=== PATIENT | male | born 1955 | race Caucasian/White ===

== ENCOUNTER 2016-07-01 16:40 | Inpatient (IN) | payer MEDICARE, MEDICAID ==
[2016-07-01] MEDS ORDERED: Furosemide 40 MG/4 ML VIAL IVPUSH ONE (17:07)
[2016-07-01 18:08] LABS: CHLORIDE,CL 100 mmol/L (98-107); SODIUM,NA 141 mmol/L (136-145)
[2016-07-01] MEDS ORDERED: oxyCODONE ER 10 MG TAB.ER PO PRN (19:37)
[2016-07-01] MEDS ORDERED: PREGABALIN 50 MG PO PRN (19:37)
[2016-07-01] MEDS ORDERED: Potassium Chloride 20 MEQ Tab.ER PO SCH (20:00)
[2016-07-01] MEDS ORDERED: Furosemide 80 MG Tab PO SCH (20:00)
--- NOTE | 2016-07-01 21:16 | ER ---
Date of Service: 07/01/2016 SUBJECTIVE: Rey presents to the emergency room with complaints of "filling up with fluid." The patient states that he has a history of lymphedema and history of chronic fluid overload. He does weigh between 400 and 600 pounds. The patient is scheduled to undergo a bariatric procedure in [place], [place], next Tuesday. He recently was discharged from [facility] in [place] and the patient was going to come to [facility] as a swing bed patient. The patient refused to be admitted to a swing bed and subsequently went home and now presents back to the emergency room complaining of difficulties managing or taking care of his activities for daily living and also complaints of fluid overload. The patient does have a Urbina catheter in place as he has a great amount of difficulty using the bathroom due to his size. He was seen at [facility] on 06/17/2016 with volume overload and at that time his Lasix was increased. He was not found to be in any heart failure. PAST MEDICAL HISTORY: 1. Obesity. 2. Coronary artery disease. 3. History of heart failure. 4. Dyslipidemia. 5. Hypertension. 6. Sleep apnea. Does not use CPAP, is on home O2. 7. Abdominal hernia. 8. Very large abdominal panniculus. 9. Chronic indwelling Urbina catheter due to urinary incontinence. 10.Osteoarthritis. 11.Lymphedema. 12.Hypothyroidism. 13.Cellulitis. 14.Stasis dermatitis. 15.Recurrent cellulitis of lower extremities. 16.History of MRSA. 17.Medical noncompliance. MEDICATIONS: 1. OxyContin 10 mg p.o. b.i.d. 2. Oxycodone 5 mg p.o. t.i.d. 3. Topamax 25 mg b.i.d. 4. Spironolactone 25 mg p.o. daily. 5. Simvastatin 20 mg daily. 6. Zoloft 50 mg daily. 7. Pseudoephedrine 30 mg p.o. t.i.d. p.r.n. 8. Lyrica 25 mg p.o. t.i.d. 9. Potassium chloride 40 mEq p.o. b.i.d. 10.Levothyroxine 25 mg p.o. at breakfast. 11.Furosemide 80 mg p.o. b.i.d. 12.Doxycycline 100 mg p.o. daily. 13.Cefuroxime 500 mg p.o. b.i.d. 14.Aspirin 325 mg p.o. daily. ALLERGIES: NKDA. REVIEW OF SYSTEMS: General: No fever or chills. HEENT: No sore throat, rhinorrhea, or congestion. Respiratory: He does complain of shortness of breath. Cardiac: Denies any substernal chest pain. GI: No nausea, vomiting, or diarrhea. No melena, hematochezia, or hematemesis. : Denies any dysuria. Musculoskeletal: Complains of chronic aches and pains. Neurologic: No fainting, blackouts, lightheadedness or palpitations. PHYSICAL EXAMINATION: General: This is a 60-year-old male patient, who is in no acute distress. Vital Signs: Please see nurse's notes. Skin: Warm, pale, and dry. HEENT. Head is normocephalic, atraumatic. Eyes, PERRLA. Extraocular movements are intact. Mouth, oral mucosa is moist. No erythema or exudate noted on hypopharynx. Neck: Supple without masses. There is no lymphadenopathy. Lungs: Clear to auscultation. Heart: Regular rate and rhythm. Abdomen: Obese. He does have a large ventral hernia. His panniculus is large with rough excoriated skin present on the inferior portion of his abdomen. He does have evidence of severe at candidiasis underlying the abdominal panniculus. Musculoskeletal: He does have evidence of stasis pigmentation and peripheral vascular disease to his lower extremities. His feet are wrapped in Mike wraps for his lymphedema at they are unable to get a AVIVA hose on him. LABORATORY DATA: WBCs 12.4, hemoglobin is 13.2, platelets are 294. Coags, PT is 10.1, INR is 0.9. Sodium is 141, potassium is 3.1, chloride is 100, bicarb is 33, BUN is 22, creatinine is 0.9. GFR is greater than 60. Glucose is 103, calcium is 8.6, corrected calcium is 9.32. Total bilirubin is 0.4, AST is 21, ALT is 43, alkaline phosphatase is 77, CK is 45, CK-MB is 0.8. Troponin is less than 0.017. C-reactive protein is 1.3. ProBNP is 201, total protein is 7.6, albumin is 3.1. DIAGNOSTIC DATA: Portable chest x-ray was obtained. No evidence of significant fluid overload. No evidence of any acute infiltrate. No significant cardiomegaly. I did have this over read by Radiology and he felt that there was no acute process present. A 12-lead EKG was obtained showing a sinus rhythm without any acute ST or T-wave abnormalities. EMERGENCY ROOM COURSE: 1. The patient did have a Urbina catheter again in place. The patient was given 40 mg of Lasix IV and he did diurese approximately 2000 mL of urine while here in the emergency room. He remained stable under my care here. ASSESSMENT: 1. Fluid overload. 2. Lymphedema. 3. Morbid obesity. 4. Hypokalemia. PLAN: The patient initially was scheduled again to come to our facility, but refused. I did contact the high school social studies teacher at home this evening and she stated that he should be able to come back in to our facility as a swing bed patient as it has been less than a month since his last acute admission. Subsequently, the patient was admitted on observation status and he will consulted tomorrow regarding his possible swing bed admission. All questions were answered. MWK: 07/01/2016 20:44:34 MODL: 07/01/2016 21:08:58 /[id number]
[2016-07-01] MEDS: Cefuroxime 250 MG Tab PO SCH (21:22)
[2016-07-01] MEDS: OXYCODONE 5 MG PO SCH (21:23)
[2016-07-01] MEDS: Furosemide 40 MG/4 ML VIAL IVPUSH SCH (21:23)
[2016-07-01] MEDS: Potassium Chloride 20 MEQ Tab.ER PO SCH (21:23)
[2016-07-01] MEDS: PREGABALIN 25 MG PO SCH (21:23)
[2016-07-01] MEDS: Topiramate 25 MG Tab PO SCH (21:24)
[2016-07-02] MEDS: methylPREDNISolone Sodium Succinate 125 MG/2 ML SDV ONE ×2 (00:30→23:30)
[2016-07-02] MEDS: Levothyroxine 25 MCG Tab PO SCH (06:13)
[2016-07-02] MEDS ORDERED: PREGABALIN 50 MG PO SCH (08:00)
[2016-07-02] MEDS ORDERED: ERGOCALCIFEROL 50000 UNIT PO SCH (09:00)
[2016-07-02] MEDS: Sodium Chloride 0.9% 10 ML Syringe FLUSH PRN (10:03)
[2016-07-02] MEDS: Furosemide 40 MG/4 ML VIAL IVPUSH SCH ×2 (10:03→20:12)
[2016-07-02 10:15] LABS: CHLORIDE,CL 101 mmol/L (98-107); SODIUM,NA 141 mmol/L (136-145)
--- NOTE | 2016-07-02 10:22 | PN ---
Progress Note for LACHO ALEXANDRA Date:07/02/2016 Room #: VM.217 SUBJECTIVE: Lacho was hospitalized last evening with fluid overload and hypokalemia. He was started on IV Lasix b.i.d. and has diuresed a total of 3200 mL out this morning in addition to that 1850 mL out yesterday evening. The patient states that he feels as though he has less fluid on board. He is not experiencing any significant shortness of breath. The patient had discussed signing out AMA as he had requested candy last night from [employer], and there was none available for him. Also exchanged some words with staff when he was unhappy with the way that his bed was positioned. PHYSICAL EXAMINATION: General: This is a 60-year-old male patient, in no acute distress. Vital Signs: Respiratory rate 22, blood pressure is 133/60, pulse rate 78, temperature is 36.5, O2 saturations 96% on 2 L. Skin: Warm, pink, and dry. HEENT: Mouth, oral mucosa is moist. Lungs: Clear to auscultation. Heart: Regular rate and rhythm. Abdomen: Soft and obese. He does have a large ventral hernia. Remainder of his physical examination is within normal limits. ASSESSMENT: 1. Volume overload. 2. Hypokalemia. PLAN: We will obtain his comprehensive metabolic panel and CBC today. We will closely monitor the patient. All questions were answered. MWK: 07/02/2016 09:28:02 MODL: 07/02/2016 10:13:12 /[id number]
[2016-07-02] MEDS: Potassium Chloride 20 MEQ Tab.ER PO SCH ×3 (10:44→20:05)
[2016-07-02] MEDS ORDERED: PREGABALIN 25 MG PO PRN (10:56)
[2016-07-02] MEDS ORDERED: OXYCODONE 10 MG PO SCH ×2 (11:00→11:15)
[2016-07-02] MEDS: Potassium Chloride 20 MEQ in Premix Bag 1 BAG IV SCH ×2 (11:01→13:27)
[2016-07-02] MEDS ORDERED: Pseudoephedrine 30 MG Tab PO PRN (11:06)
[2016-07-02] MEDS ORDERED: Sodium Chloride 0.9% 250 ML IV SCH (11:15)
[2016-07-02] MEDS: MAGNESIUM OXIDE 200 MG PO SCH (11:58)
[2016-07-02] MEDS: Spironolactone 25 MG Tab PO SCH (12:00)
[2016-07-02] MEDS: Simvastatin 20 MG Tab PO SCH (12:00)
[2016-07-02] MEDS: Sertraline 50 MG Tab PO SCH (12:01)
[2016-07-02] MEDS: Aspirin 325 MG Tab.EC PO SCH (12:02)
[2016-07-02] MEDS: Cefuroxime 250 MG Tab PO SCH ×2 (12:02→20:05)
[2016-07-02] MEDS: Topiramate 25 MG Tab PO SCH ×2 (12:03→20:09)
[2016-07-02] MEDS: OXYCODONE 5 MG PO SCH ×3 (12:03→15:55)
[2016-07-02] MEDS: PREGABALIN 25 MG PO SCH ×3 (12:04→15:55)
[2016-07-02] MEDS ORDERED: OXYCODONE 10 MG PO PRN (12:38)
[2016-07-02] MEDS: CYANOCOBALAMIN 5000 MCG SL SCH ×2 (13:17→20:10)
[2016-07-02 14:27] LABS: CHLORIDE,CL 100 mmol/L (98-107); SODIUM,NA 140 mmol/L (136-145)
[2016-07-02] MEDS ORDERED: Furosemide 80 MG Tab PO SCH (16:00)
--- NOTE | 2016-07-02 16:20 | PCM.SN ---
- Free Text/Narrative Note: Combine with dictated H and P as I was disconnected 1. Edema and anasarca due to morbid obesity continue IV lasix, check urine protein ratio 2. Morbid obesity, I do not feel he is a candidate for gastric bypass surgery next week 3. Essential hypertension continue home meds/diuretics 4. Hypokalemia improved continue oral potassium recheck in AM 5. Malnutrition with low albumin we will have nutrition see him he states he is on a low carb diet 6. Lymphedema we will keep his legs wrapped 7. Hx of MRSA, he continues on ceftin for unknown reasons but doesn't like the taste of ours so plans not to take it 8. Hypothyroidism, on replacement we will check TSH 9. Chronic pain on narcotics and lyrica, lyrica may be contributing to his swelling Code level 1 for DVT prophylaxis will order Lovenox 40 mg BID Patient upgraded to acute care due to IV lasix and need for potassium replacement and lab work We will also continue telemetry, his troponin was negative
[2016-07-02] MEDS: Enoxaparin 40 MG/0.4 ML Syringe SUBCUT SCH (20:06)
[2016-07-02] MEDS: OXYCODONE 10 MG PO SCH (20:08)
[2016-07-02] MEDS: PREGABALIN 50 MG PO SCH (20:11)
[2016-07-02] MEDS ORDERED: diphenhydrAMINE 25 MG Cap PO PRN (22:30)
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
[2016-07-02] MEDS ORDERED: diphenhydrAMINE 50 MG/ML SDV ONE (23:16)
[2016-07-02] MEDS ORDERED: EPINEPHrine 1:1000 1 MG/ML SDV ONE (23:19)
[2016-07-03] MEDS: OXYCODONE 10 MG PO SCH ×3 (00:37→23:33)
[2016-07-03] MEDS: PREGABALIN 50 MG PO SCH ×3 (00:39→23:33)
--- NOTE | 2016-07-03 01:03 | PN ---
Progress Note for LACHO ALEXANDRA Date: 07/03/2016 Room #: VM.218 SUBJECTIVE: Lacho is the patient on the floor. I was consulted as the patient was experiencing symptoms of an allergic reaction. The patient had not been started on any new medications but did have a chocolate shake tonight. He states that he thinks that possibly something in the shake caused him to have an allergic reaction because he began experiencing the symptoms shortly after consuming the shake. The patient states that shortly after consuming the shake, he began experiencing urticaria, sensation of burning in his mouth, and shortness of breath. Nursing staff consulted me and subsequently went to the floor to care for the patient. He is a patient of Dr. Francisca Maldonado. PHYSICAL EXAMINATION: Vital Signs: Blood pressure is 147/63, O2 saturation is 94% on oxygen at 2 L/minute, respiratory rate is 20, temperature is 36.8, pulse rate is 92. HEENT: Mouth, oral mucosa is moist. Lungs: Clear to auscultation. Heart: Regular rate and rhythm. Abdomen: Soft and nontender. It is obese. Skin: Warm, pink, and dry. He does have urticaria and swelling to the lips. His skin is extremely pruritic and he is itching vigorously at his skin. HOSPITAL COURSE: The patient was given epinephrine 0.5 mg IM, Benadryl 50 mg IV, and Solu-Medrol 125 mg IV. The patient reported rapid resolution of his symptoms and stated that he was feeling much better approximately 10 minutes after receiving the above medications. ASSESSMENTS: 1. Allergic reaction to unknown allergen. 2. Fluid overload. 3. Lymphedema. 4. Morbid obesity. PLAN: We will monitor the patient tonight. The patient is requesting that he be transferred to [facility] in [place] tomorrow. He has threatened to leave this facility AMA on numerous occasions since being admitted. Again, he does wish to remain at our facility tonight. All questions were answered. MWK: 07/03/2016 00:43:37 MODL: 07/03/2016 00:58:59 /[id number]
[2016-07-03] MEDS ORDERED: TERBINAFINE 250 MG PO SCH (08:00)
[2016-07-03] MEDS ORDERED: Metolazone 2.5 MG Tab PO SCH (08:00)
[2016-07-03 08:33] LABS: CHLORIDE,CL 100 mmol/L (98-107); SODIUM,NA 139 mmol/L (136-145)
[2016-07-03] MEDS: OXYCODONE 5 MG PO SCH ×3 (09:44→15:58)
[2016-07-03] MEDS: PREGABALIN 25 MG PO SCH ×3 (09:44→15:59)
[2016-07-03] MEDS: Potassium Chloride 20 MEQ Tab.ER PO SCH ×3 (09:45→11:34)
[2016-07-03] MEDS: Enoxaparin 40 MG/0.4 ML Syringe SUBCUT SCH ×2 (09:46→19:53)
[2016-07-03] MEDS: Furosemide 40 MG/4 ML VIAL IVPUSH SCH ×2 (09:47→19:50)
[2016-07-03] MEDS: Aspirin 325 MG Tab.EC PO SCH (09:47)
[2016-07-03] MEDS: Cefuroxime 250 MG Tab PO SCH ×2 (09:47→19:18)
[2016-07-03] MEDS: Spironolactone 25 MG Tab PO SCH (09:47)
[2016-07-03] MEDS: Sodium Chloride 0.9% 10 ML Syringe FLUSH PRN ×2 (09:48→19:57)
[2016-07-03] MEDS: MAGNESIUM OXIDE 200 MG PO SCH (09:49)
[2016-07-03] MEDS: Simvastatin 20 MG Tab PO SCH (09:49)
[2016-07-03] MEDS: Sertraline 50 MG Tab PO SCH (09:49)
[2016-07-03] MEDS: CYANOCOBALAMIN 5000 MCG SL SCH ×3 (09:49→19:18)
[2016-07-03] MEDS: Topiramate 25 MG Tab PO SCH ×2 (09:49→19:18)
[2016-07-03] MEDS: Doxycycline 100 MG Cap PO SCH (09:59)
[2016-07-03] MEDS: Levothyroxine 25 MCG Tab PO SCH (09:59)
--- NOTE | 2016-07-03 11:40 | PN ---
Progress Note for LACHO ALEXANDRA Date: 07/03/2016 Room #: VM.218 SUBJECTIVE: This is hospital day #3 for a 60-year-old, initially admitted to observation for generalized lymphedema and swelling. The patient tells me he is under emergent status for gastric bypass surgery which is to take place Tuesday. He is hoping to get some of the fluid off before he goes. We were unable to weigh him yesterday due to his weight, but we will keep trying. He is down 7.4 L since admission. Kidney function is looking excellent. He denies any shortness of breath today. Overall, I feel as leg swelling is better. He did have an episode last night of itching. Initially, I ordered oral Benadryl because it was itching and then it progressed to some lip swelling and trouble breathing. The ER PA was in house and checked on him and ordered 250 of Solu- Medrol and epinephrine and the patient did much better after that. He also did end up getting some IV Benadryl too. Otherwise, this morning; he has been asking for ice cream. He did get some. Blood sugar was over 200. Probably due to the Solu-Medrol. He has been ordering extra food from the kitchen. I discussed with him in detail about compliance with following a lower calorie diet due to his upcoming gastric bypass surgery. But he told me he has already met with them and he knows what he is supposed to be doing. OBJECTIVELY: Vital Signs: His temperature is 97.7, pulse 93, blood pressure 115/58, respiratory rate 20, and O2 of 90 on 3.5 L. He normally does use oxygen at home, every time he lays down. He is supposed to be on a CPAP, but he does not use it. General: He is in no acute distress. Heart: Regular rate and rhythm with distant tones. He has been on telemetry. He has had some sinus tachycardia and artifact, otherwise, no concerning rhythm. Abdomen: Distended. He has notable hernias, but there is no tenderness. Extremities: Lymphedema changes, but edema is improved down to 2+ in his feet and calves with no redness or warmth or open sores to suggest an infection. He did refuse his Topamax and Ceftin last night. LABORATORY DATA: Otherwise lab work today does show his white count 13.3, hemoglobin 14.7, and platelets 246. Sodium 139, potassium 4.3, chloride 100, bicarb 32, BUN 18, creatinine 1, and glucose 216 and calcium 9.1. ASSESSMENT: 1. Lymphedema, due to morbid obesity. Protein to creatinine ratio to be collected and sent out. 2. Anasarca. 3. Morbid obesity. 4. Hyperglycemia, due to steroids. He does have a history of pre diabetes. We will do Accu-Cheks q.i.d. today. 5. Allergic reaction possibly angioedema unknown cause. The patient is not on any SERENA inhibitors. We went through his medicines in detail the only new things were really the magnesium and Drisdol which he got in the morning. He did also get Lovenox in the evening, but he has had that 100s of times before per his report. 6. Known history of medical noncompliance. 7. Chronic hypoxia and on treated sleep apnea. PLAN: At this point, the patient will continue acute cares with IV Lasix. He will get another dose of Lovenox this morning. We will watch him closely if any signs of allergic reaction, we will treat that. We will continue with oral Aldactone as well. We will repeat all lab work in the morning. We will put him on a stricter diet with diabetic features as well as 2000 calorie limit. MKA: 07/03/2016 09:42:43 MODL: 07/03/2016 11:30:28 /[id number]
[2016-07-03] MEDS: Nystatin Crm 30 GM Tube TOP SCH (20:03)
[2016-07-04] MEDS: Levothyroxine 25 MCG Tab PO SCH (06:47)
[2016-07-04] MEDS: PREGABALIN 25 MG PO SCH ×3 (07:51→16:06)
[2016-07-04] MEDS: OXYCODONE 5 MG PO SCH ×3 (07:51→16:06)
[2016-07-04] MEDS: Doxycycline 100 MG Cap PO SCH (07:52)
[2016-07-04] MEDS: Sodium Chloride 0.9% 10 ML Syringe FLUSH PRN ×2 (07:53→20:47)
[2016-07-04] MEDS: Furosemide 40 MG/4 ML VIAL IVPUSH SCH ×2 (07:53→20:37)
[2016-07-04] MEDS: CYANOCOBALAMIN 5000 MCG SL SCH ×3 (07:55→19:30)
[2016-07-04] MEDS: Enoxaparin 40 MG/0.4 ML Syringe SUBCUT SCH ×2 (07:55→20:38)
[2016-07-04] MEDS: Aspirin 325 MG Tab.EC PO SCH (07:55)
[2016-07-04] MEDS: Spironolactone 25 MG Tab PO SCH (07:55)
[2016-07-04] MEDS: MAGNESIUM OXIDE 200 MG PO SCH (07:55)
[2016-07-04] MEDS: Cefuroxime 250 MG Tab PO SCH ×2 (07:55→19:30)
[2016-07-04] MEDS ORDERED: Potassium Chloride 20 MEQ Tab.ER PO SCH (08:00)
[2016-07-04 08:24] LABS: CHLORIDE,CL 102 mmol/L (98-107); SODIUM,NA 142 mmol/L (136-145)
[2016-07-04] MEDS: Sertraline 50 MG Tab PO SCH (08:39)
[2016-07-04] MEDS: Simvastatin 20 MG Tab PO SCH (08:39)
[2016-07-04] MEDS: Topiramate 25 MG Tab PO SCH ×2 (08:39→19:30)
--- NOTE | 2016-07-04 11:37 | PN ---
Progress Note for LACHO ALEXANDRA Date: 07/04/2016 Room #: VM.218 SUBJECTIVE: This is a 60-year-old admitted on the evening of 07/01 to observation and to acute status on 07/02 for generalized anasarca and lymphedema. The patient has had another 2 L out. He is down 9 L overall. He denies shortness of breath. He has not had any further allergic reactions. He has been using nystatin and pillow cases now between his skin folds. There was some minor redness, but no open sores. No warmth to suggest an infection. Otherwise, his white count did go up slightly from 13.3 to 13.6. He has been afebrile. He does refuse many of his medications. He is normally supposed to be on both Ceftin and doxycycline to prevent cellulitis and infections, but here, he has been using only the doxycycline. He had some hyperglycemia from steroids received the day before for an allergic reaction. Blood sugars are improved. OBJECTIVE: Vital Signs: His temperature is 96.7, pulse 64, blood pressure 117/56, respiratory rate 20, O2 of 100% on 3.5 L. General: He is in no acute distress. Heart: Regular rate and rhythm. S1 and S2 with distant tones. No murmur appreciated. Lungs: Sounds clear to auscultation bilaterally without crackles or wheezes. Abdomen: Obese and large with an obvious ventral hernia, nontender. Extremities: Lymphedema changes. Wrapping in place. Tenderness to palpation anteriorly over the left eze. No significant increase in swelling from yesterday, but still has 2+ edema in both feet. Mental Status: Alert and orientated x3. Skin: Some redness noted to the groin folds and below his pannus anteriorly, but no warmth to suggest infection. LABORATORY DATA: Lab work today does show him to have a white count of 13.6, hemoglobin 11.6, platelets 297. Sodium 142, potassium 3.4, chloride 102, bicarb 37, BUN 22, creatinine 0.9, glucose 126, and calcium 7.8. ASSESSMENT: 1. Lymphedema, likely due to morbid obesity with anasarca with normal renal function. Protein-creatinine ratio has been sent off. 2. Morbid obesity. 3. Hyperglycemia due to steroids, resolved. He does have a history of pre- diabetes, but routine Accu-Chek no longer indicated. 4. Allergic reaction. It is possible with something he ate. He had some kind of chocolate shake right before it occurred. He has had no further episodes. 5. History of medical noncompliance. 6. Chronic hypoxia with untreated sleep apnea. 7. DVT prophylaxis, on Lovenox b.i.d. PLAN: At this point, the patient is admitted under acute cares to continue on IV Lasix. We will watch renal function closely and repeat in the morning. We will increase his potassium dosing to 40 b.i.d.; his home dose was 20 t.i.d. Hopefully, he will be medically stable to have discharge tomorrow with plans to go to [place], [place] for gastric bypass and hernia repair surgery on the next date. He understands that he is a very high risk surgical candidate. It was his previous primary care provider, Dr. Kramer and the surgeon who have been working on this plan. MKA: 07/04/2016 11:14:20 MODL: 07/04/2016 11:29:50 /[id number]
[2016-07-04] MEDS: Nystatin Crm 30 GM Tube TOP SCH ×2 (12:06→20:40)
[2016-07-04] MEDS: Potassium Chloride 20 MEQ Tab.ER PO SCH (20:34)
[2016-07-04] MEDS: OXYCODONE 10 MG PO SCH (20:35)
[2016-07-04] MEDS: PREGABALIN 50 MG PO SCH (20:36)
[2016-07-05] MEDS: OXYCODONE 10 MG PO SCH (00:15)
[2016-07-05] MEDS: PREGABALIN 50 MG PO SCH (00:15)
[2016-07-05 06:17] VITALS: BP 126/88
[2016-07-05] MEDS: Levothyroxine 25 MCG Tab PO SCH (06:18)
[2016-07-05 07:40] LABS: CHLORIDE,CL 104 mmol/L (98-107); SODIUM,NA 143 mmol/L (136-145)
[2016-07-05] MEDS: Spironolactone 25 MG Tab PO SCH ×2 (08:00→08:48)
--- NOTE | 2016-07-05 08:16 | ER ---
Date of Service: 07/01/2016 ADDENDUM: This emergency room note may be used for the patient's admission H and P. MWK: 07/05/2016 05:51:50 MODL: 07/05/2016 07:02:01 /[id number]
[2016-07-05] MEDS: Doxycycline 100 MG Cap PO SCH ×2 (08:30→08:49)
[2016-07-05] MEDS: Topiramate 25 MG Tab PO SCH ×2 (08:30→08:49)
[2016-07-05] MEDS: Simvastatin 20 MG Tab PO SCH ×2 (08:30→08:48)
[2016-07-05] MEDS: Aspirin 325 MG Tab.EC PO SCH ×2 (08:30→08:49)
[2016-07-05] MEDS: PREGABALIN 25 MG PO SCH (08:45)
[2016-07-05] MEDS: Potassium Chloride 20 MEQ Tab.ER PO SCH (08:48)
[2016-07-05] MEDS: Cefuroxime 250 MG Tab PO SCH ×2 (08:49→09:02)
[2016-07-05] MEDS: Sertraline 50 MG Tab PO SCH (08:49)
[2016-07-05] MEDS: Furosemide 40 MG/4 ML VIAL IVPUSH SCH (08:50)
[2016-07-05] MEDS: OXYCODONE 5 MG PO SCH (08:51)
[2016-07-05] MEDS: Nystatin Crm 30 GM Tube TOP SCH (08:53)
[2016-07-05] MEDS: MAGNESIUM OXIDE 200 MG PO SCH (08:54)
[2016-07-05] MEDS: CYANOCOBALAMIN 5000 MCG SL SCH (08:54)
--- NOTE | 2016-07-06 08:12 | DISCH ---
Date of hospital admission would be 07/01/2016 to observation and then 07/02/2016 to acute care. PRIMARY DISCHARGE DIAGNOSES: 1. Generalized edema and anasarca, likely due to severe obesity with protein creatinine ratio pending on discharge. 2. Recurrent cellulitis due to lymphedema, on Ceftin and doxycycline long-term but refused Ceftin during his stay. 3. Morbid obesity. Scheduled for gastric bypass surgery tomorrow in [place]. 4. Hyperglycemia due to steroids, resolved with history of pre diabetes. 5. Allergic reaction. It was possibly due to a short chocolate shake that he had here at the hospital. He had no further episodes. 6. History of medical noncompliance. 7. Ventral hernia, non incarcerated or strangulated. 8. Chronic hypoxia with untreated sleep apnea. He uses oxygen when lying down and sleeping. 9. DVT prophylaxis. He was given Lovenox until 07/05/2016 due to his upcoming surgery. 10.History of MRSA with colonization. REASON FOR ADMISSION: On the date of admission, this 60-year-old male, who lives in [place], came to [facility] emergency room due to increasing fluid retention over the past week. He had previously been in [facility] and [facility] but for 1 day. He takes Lasix 80 mg twice daily as an outpatient. He takes Aldactone 25 mg daily and also metolazone is ordered but he did not always take all of his pills; even his pain pills, he did not always take them routinely while he was here. He is aware that Lyrica can also cause swelling but did not want to make any changes to that. He was initiated on IV Lasix 40 mg IV b.i.d., he diuresed 12.3 L during his stay. He tolerated it well. His blood pressures were controlled. His lab work all looked excellent with creatinine stable 1.0 on discharge. BUN 20, bicarb was 37. His albumin was slightly low at 2.9, this was discussed with him that I was surprised they did not put him on some special high-protein diet but he states he has already met with the gastric bypass people, they told him what to do and he will follow up with them tomorrow as planned. Otherwise, he was unable to take his vitamins as he thought that might have caused the allergic reaction. However, the B12 had not yet been given during his stay. The vitamin D was given but it was in the morning and the other vitamins, magnesium would have also been given in the morning. Otherwise, his white count did go up slightly to a max of 13.6, this is felt to be related somewhat to the steroids but it was mildly elevated around 12.2 on admission but no fevers, no chills, no signs of infection. No antibiotics other than his doxycycline which he takes long-term were given and white count was 8.6 on discharge. Hemoglobin was 12.6. The patient otherwise had high blood sugars after Solu-Medrol, up to 280; however, this resolved and we discontinued further Accu-Cheks. The patient reports his breathing was good. He was not having any new pain. He was feeling stable for discharge and his son was here to pick him up with a plan that he will check in at [place] tomorrow. We discussed the MRSA screen that was positive down in [place]. This will be communicated by him with the team at [place]. Otherwise, they did request all information to be sent there and the nurses had their information. So, please put a stat on this discharge summary and send it up to I believe Dr. Rogers at [place] gastric bypass. The patient had previously been discussed to have surgery on an emergent basis with Dr. Barbara Soria, his primary care. He understands that he is high risk for this surgery which will include gastric bypass and hernia repairs. DISCHARGE PHYSICAL EXAMINATION: Vital Signs: Include a temperature of 97.1, pulse 65, blood pressure 126/88, respiratory rate 20, O2 of 97% on 3.5 L. General: He is in no acute distress. Heart: Regular rate and rhythm. S1, S2 without murmur. Tones are more clear today. Lungs: Lung sounds are clear to auscultation bilaterally without crackles or wheezes. Abdomen: Positive bowel sounds. Soft and nontender. He is having bowel movements. He does have a ventral hernia. It is nontender but non reducible. Extremities: Warm and dry. He has Mike wraps in place. He has 2+ edema up to his thigh. Mental Status: He is alert and orientated x3. Psych: He is pleasant. He is cooperative. 30 minutes was spent on the discharge process. MKA: 07/05/2016 09:16:46 MODL: 07/05/2016 22:37:39 /[id number]
== END 2016-07-05 10:15 | disposition home or self-care (01) | DRG 607 ==
LOC: VM.ED 16:40 → VM.MS 18:35 → OBSVTOIN 07-02 13:37
PROVIDERS: ADMIT Physician Assistant; ATTEND Physician Assistant
DX: E87.70 Fluid overload, unspecified (principal); I89.0 Lymphedema, not elsewhere classified; Z68.45 Body mass index [BMI] 70 or greater, adult; E46 Unspecified protein-calorie malnutrition; E87.6 Hypokalemia; E66.01 Morbid (severe) obesity due to excess calories; Z91.14 Patient's other noncompliance with medication regimen; K43.9 Ventral hernia without obstruction or gangrene; G47.33 Obstructive sleep apnea (adult) (pediatric); Z86.14 Personal history of Methicillin resistant Staphylococcus aureus infection; N40.1 Benign prostatic hyperplasia with lower urinary tract symptoms; N39.498 Other specified urinary incontinence; Z99.81 Dependence on supplemental oxygen; Z96.0 Presence of urogenital implants; I50.9 Heart failure, unspecified; I11.0 Hypertensive heart disease with heart failure; I25.10 Atherosclerotic heart disease of native coronary artery without angina pectoris; M19.90 Unspecified osteoarthritis, unspecified site; E88.09 Other disorders of plasma-protein metabolism, not elsewhere classified; G89.29 Other chronic pain; R73.9 Hyperglycemia, unspecified; T78.1XXA Other adverse food reactions, not elsewhere classified, initial encounter; R06.02 Shortness of breath
CPT/HCPCS: 36415; 71010; 80053 ×2; 82550; 82553; 83880; 84484; 85025 ×2; 85610; 86140; 93005; 94760; 96365; 96375; 99219; 99283; 99285; A9270 ×16; G0378; J1940 ×2; J2930; J3480; J7050; 80048; 80069; 82570; 82962; 83735; 84156; 96374; 97161-GP; J0171; J1200; J1650